=== PATIENT | male | born 1980 | race Caucasian/White ===

== ENCOUNTER 2020-02-21 08:26 | Inpatient (IN) | payer OTHER ==
[2020-02-21 08:59] LABS: #Eosinphils 0.1 thou/uL (0.0-0.7); #Monocytes 1.3 thou/uL (0.11-0.59); #Neutrophils 11.5 thou/uL (1.40-6.50); %Basophils 0.1 % (0.0-1.0); %Eosinophils 0.7 % (0.0-10.0); %Lymphocytes 13.2 % (21.0-51.0); %Monocytes 8.7 % (0.0-10.0); %Neutrophils 77.2 % (42.0-75.0); Hemoglobin 14.6 g/dL (14.0-18.0); Mean Corpuscular HGB CONC 33.8 g/dL (32.0-36.0); Mean Corpuscular Hemoglobin 32.7 pg (27.0-31.0); Mean Corpuscular Volume 96.7 fL (78.0-98.0); Platelet Count 196 thou/uL (130-400); RBC Distribution Width 11.2 % (11.5-14.5); Red Blood Cell (RBC) Count 4.48 mill/uL (4.70-6.10); White Blood Cell (WBC) Count 14.9 thou/uL (4.8-10.8)
[2020-02-21 09:19] LABS: ALT (SGPT) 97 U/L (8-55); AST (SGOT) 49 U/L (5-34); Albumin 4.2 g/dL (3.5-5.0); Alkaline Phosphatase 74 U/L (40-110); Anion Gap 10 mmol/L (10-20); BUN (Urea Nitrogen) 10 mg/dL (8.9-20.6); Bilirubin, Total 1.2 mg/dL (0.2-1.2); Calc. Creatinine Clearance 0 mL/min (70-130); Calcium 8.8 mg/dL (7.8-10.44); Carbon Dioxide 30 mmol/L (22-29); Chloride 107 mmol/L (98-107); Estimated GFR-MDRD Greater than 90; Globulin 2.5 g/dL (2.4-3.5); Glucose 90 mg/dL (70-105); Potassium 3.5 mmol/L (3.5-5.1); Protein, Total 6.7 g/dL (6.0-8.3); Sodium 143 mmol/L (136-145)
[2020-02-21] MEDS ORDERED: Dexamethasone 4 mg/ml Vial ONE (09:21)
[2020-02-21] MEDS ORDERED: Ketorolac Tromethamine 30 MG/ML VIAL ONE (09:22)
[2020-02-21] MEDS ORDERED: cefTRIAXone\\ROCEPHIN 1 GM VIAL ONE (09:22)
[2020-02-21] MEDS ORDERED: Ondansetron PF 4 MG/2 ML Vial ONE (09:22)
--- NOTE | 2020-02-21 10:30 | CT ---
CT neck soft tissues with contrast: 02/21/2020 HISTORY: 39-year-old male with throat pain and dysphagia. Evaluate for abscess. Dr. Clement discussed the findings by telephone with Dr. Bosch at 10:27 AM, 02/21/2020. The mediastinal inv olvement was discussed. FINDINGS: There is a left deep neck fluid collection with very irregular margins and enhancing thick irregular rubi, consistent with abscess. Superior extent is left peritonsillar space with edematous tissue effacing the left side of the oropharyngeal airway. It then extends caudally within the left side of the, including into the left para glottic space, with complete effacement of piriform sinus. A left posterior inferior extension of the abscess fluid collection surrounds the left superior formula of t he thyroid cartilage. Then there is left lateral extension of lateral process of the fluid collection slightly lateral to the left side of the hyoid bone encroaching upon the left submandibula r space. The entire epiglottis, true and false vocal cords, and aryepiglottic folds, are edematous and swollen. The edematous, phlegmonous tissues extend posteriorly across the midline to involve the right parapharyngeal space. Involvement of the hypopharynx includes complete effacement of bilateral piriform sinuses, and involvement of the post cricoid region and posterior pharyngeal wall. There is edematous tissue throughout the upper and mid retropharyngeal space, without organized enhancing rubi (no conclusive evidence of retropharyngeal abscess yet). However, there is edema in t he mediastinum, indicating breakthrough of the retropharyngeal edema through the danger space. The mediastinal edema surrounds the origins of the great vessels and partially surrounds the aortic arch, and reaches the aortopulmonic window. There are bullae at the lung apices. There is some narrowing of the supraglottic laryngeal airway. True and false vocal cords are displaced to the right. There is multilevel left-sided reactive level 2 and level 3 lymph nodes. There is edema surrounding the strap muscles. Edema extends along the left carotid space. IMPRESSION: 1.) Abscess centered in the left side of the larynx, with extension superiorly to the left tonsillar region. 2.) Severe laryngitis with severe edema of the entire larynx and hypopharynx. 3.) The edema extends outside of the laryngeal skeleton and into multiple spaces, including left subm andibular, left carotid, left posterior cervical, retropharyngeal, spaces. 4) most concerning, the edema extends from the retropharyngeal space into the mediastinum. 5) paraseptal emphysema.
[2020-02-21] MEDS ORDERED: Iopamidol 370 76% 100 ML VIAL ONE (10:58)
--- NOTE | 2020-02-21 11:00 | RAD ---
EXAM: Single view of the chest HISTORY: Throat pain and dyspnea COMPARISON: None FINDINGS: Single view of the chest shows a normal sized cardiomediastinal silhouette. There is no deena dence of consolidation, mass, or pleural effusion. The bones are unremarkable IMPRESSION: No evidence of acute cardiopulmonary disease
[2020-02-21] MEDS ORDERED: PROPOFOL 200 MG/20 ML VIAL ONE (11:05)
[2020-02-21] MEDS ORDERED: Rocuronium Bromide 10 MG/ML (10ML VIAL) ONE (11:05)
[2020-02-21] MEDS ORDERED: Clindamycin/D5W 900 mg/50 ml Premix Bag ONE ×2 (11:22→19:34)
[2020-02-21] MEDS ORDERED: Vancomycin 1 GM/200 ML BAG ONE (11:22)
[2020-02-21 12:07] LABS: INR-International Normal Ratio 0.9; PTT 25.1 sec (22.9-36.1)
[2020-02-21 12:32] LABS: CK (CPK) 51 U/L (30-200); Lipase 7 U/L (8-78)
[2020-02-21 12:46] LABS: Bilirubin Negative (Negative); Blood, Urine Negative (Negative); Clarity Clear (Clear); Glucose, Urine (Dipstick) Normal (Negative); Ketone, Urine Negative (Negative); Leukocyte Negative Leu/uL (Negative); Nitrite Negative (Negative); Protein, Urine (Dipstick) Negative (Neg-Trace); Specific Gravity, Urine 1.032 (1.002-1.036); Urobilinogen Normal mg/dL (Less than 2)
[2020-02-21 13:40] LABS: SARS-CoV-2 NAA Rapid Test Not Detected (NotDetected)
--- NOTE | 2020-02-21 13:53 | CON ---
DATE OF CONSULTATION: CHIEF COMPLAINT: Neck swelling, neck soreness, shortness of breath, tonsillitis. HISTORY OF PRESENT ILLNESS: A 39-year-old male patient presenting with several days of sore throat and difficulty swallowing and pain on swallowing and progressively short of breath and coughing up his saliva and mucus, presenting to the emergency room with increasing difficulty of breathing. A CT scan was completed showing a parapharyngeal and paralaryngeal abscess with inflammation that extended down to the mediastinum and given airway concern, ENT was consulted and Medicine was contacted for admission to the intensive care unit. PAST MEDICAL HISTORY: Denies history of diabetes or tonsillar infections or previous abscesses. PAST SURGICAL HISTORY: No head or neck surgeries. CURRENT MEDICATIONS: Keflex. ALLERGIES: TO PENICILLIN. SOCIAL HISTORY: Nonsmoker. FAMILY HISTORY: Noncontributory. REVIEW OF SYSTEMS: SKIN: Negative. EYES: Negative. EARS, NOSE, AND THROAT: See HPI. Otherwise negative. RESPIRATORY: Shortness of breath. CARDIOVASCULAR: Negative. GASTROINTESTINAL: Negative. MUSCULOSKELETAL: Negative. NEUROLOGIC: Negative. HEMATOLOGIC: Negative. LYMPHATIC: Negative. IMMUNOLOGIC: Negative. ENDOCRINE: Negative. PHYSICAL EXAMINATION: GENERAL: The patient is leaning forward with mild distress, but alert and oriented x3. HEAD AND FACE: Normocephalic, atraumatic. No facial skin lesions. No maxillary or frontal gland tenderness. No parotid gland tenderness or submandibular gland tenderness. EYES: Extraocular movements are intact. Pupils are equally round and reactive to light. No nystagmus on lateral gaze. EARS: Right and left pinna are normal. EACs are clear. No evidence of effusion or infection. NOSE: Nasal mucosa is normal and mild septal deviation to the left. ORAL CAVITY: Lips, teeth, and tongue are normal. Floor of mouth is soft. Left base of tongue and left pharynx show significant edema with mild edema on the right as well as viewed through the oropharynx. Nasopharynx, hypopharynx, and larynx were scoped and examined. The nasopharynx is clear. No masses or lesions are noted. The posterior pharynx has minimal edema superiorly, but inferiorly, there is significant edema that is worse on the right side. The base of tongue, vallecula, and epiglottis have significant edema and are deviated. Only one true vocal fold is visible and there is a small opening of the glottis. However, there is significant narrowing from edema and deviation. NECK: Mild lymphadenopathy bilaterally. Trachea is mildly deviated. Thyroid is normal size without apparent nodules. NEUROLOGIC: Cranial nerves 2 through 12 are grossly intact. Mood and affect are normal. IMAGING: CT scan shows significant left-sided paralaryngeal and parapharyngeal abscess that extends inferiorly from the tonsil and soft palate with deviation of the larynx and narrowing of the airway due to edema. ASSESSMENT AND PLAN: A 39-year-old male patient presenting with sore throat, odynophagia, dysphagia, increasing neck pain, and shortness of breath, found to have a paralaryngeal and parapharyngeal abscess, which is deviating airway and causing significant upper airway swelling. Given the patient's previous antibiotic course and presentation, would recommend broad-spectrum empiric antibiotics, which avoid penicillin medicine admission for antibiotics and for mediastinitis and extension into the chest and for antibiotic management. ICU admission for airway observation and likely for incision and drainage of abscess in the OR. PROCEDURE: Flexible laryngoscopy performed with topical lidocaine and phenylephrine was sprayed in bilateral nares. PROCEDURE IN DETAIL: The endoscope was inserted through the right naris into the nasopharynx over the soft palate and the airway was viewed. Please see note for clear description of findings. The patient tolerated the procedure well. Job ID: [id number]
--- NOTE | 2020-02-21 15:38 | CON ---
DATE OF CONSULTATION: HISTORY OF PRESENT ILLNESS: Mr. Cruz is a 39-year-old gentleman, who has been in the ER two times over the weekend with sore throat. He initially received steroids and then antibiotics. He was unable to swallow yesterday evening and unable to sleep. Therefore, he came to the emergency department again. CT scan of his neck was obtained, which shows laryngeal/pharyngeal abscess. Dr. Jordan with ENT has been called, who has performed indirect laryngoscopy under local. There was swollen pharynx and epiglottis. He is planning to take him to the operating room for intubation with direct laryngoscopy and I and D of his neck abscess. I have been asked to see him to standby in case needed. PAST MEDICAL HISTORY: None. PAST SURGICAL HISTORY: None. CURRENT MEDICATIONS: Keflex. ALLERGIES: PENICILLIN. SOCIAL HISTORY: He has never used tobacco and does not use alcohol regularly. REVIEW OF SYSTEMS: He has no history of fever or shortness of breath at home. PHYSICAL EXAMINATION: GENERAL: The patient is currently resting in the preoperative area. He is reclined on the stretcher. He is able to handle his secretions without any difficulty. Left side of his neck is obviously slightly swollen. VITAL SIGNS: His pulse is 90 and regular, blood pressure is 120/70. NECK: I did not vigorously palpate his neck, but his neck is swollen on the left. There is mild erythema. I could not perform an oral exam. CHEST: Clear bilaterally. CARDIAC: Heart rhythm is regular. ABDOMEN: Soft and nontender. EXTREMITIES: No edema. LABORATORY DATA: White blood cell count is 14.9, hemoglobin is 14.6. His creatinine is 0.79 with a potassium of 3.5. PT/INR 0.9. COVID testing is negative. ASSESSMENT AND PLAN: I reviewed the CT scan. The patient is going to the OR for intubation with laryngoscopy and neck exploration, I and D. I am available if needed. Job ID: [id number]
[2020-02-21] MEDS ORDERED: Lidocaine 4% PF 5 ML AMP NEB SCH ×2 (16:00→16:10)
[2020-02-21] MEDS ORDERED: Midazolam HCl 2 mg/2 ml Vial ONE (16:09)
[2020-02-21] MEDS ORDERED: AFRIN NASAL MIST 15 ML BOT ONE (16:09)
[2020-02-21] MEDS ORDERED: Dexmedetomidine 200 MCG/2 ML VIAL ONE (16:09)
[2020-02-21] MEDS ORDERED: Fentanyl 100 MCG/2 ML VIAL ONE (16:09)
[2020-02-21] MEDS ORDERED: Lidocaine 1% PF 5 ML VIAL ONE (16:09)
[2020-02-21] MEDS ORDERED: EPINEPHrine 1 MG/ML AMP ONE ×2 (16:14→17:24)
[2020-02-21] MEDS ORDERED: Lidocaine 1% w/Epinephrine 1:100K 20 ML VIAL ONE (16:14)
[2020-02-21] MEDS ORDERED: Lidocaine 4% Topical Sol 50 ML BOT ONE (16:20)
--- NOTE | 2020-02-21 17:24 | HP ---
PRIMARY CARE PHYSICIAN: The patient currently does not have a primary care physician. CHIEF COMPLAINT: I woke up with a sore throat. HISTORY OF PRESENT ILLNESS: Mr. Cruz is a pleasant 39-year-old gentleman who has no significant past medical history. He was in his usual state of health until Thursday when he says he woke up and noticed some soreness in his throat. He says on Thursday, it got progressively worse. He says he went to a local emergency room where they did a rapid strep screen. It was negative. He says they gave him a dose of steroids and sent him home. However, his symptoms continued to get worse and then on Thursday, he went to the [facility]. There, they gave him some antibiotics and he went home. But then last night, he still could not sleep, and as a result, he came back to the [facility], but this time they transferred him to the ER. A CT scan was done, which showed extensive area of abscess into the submandibular area and into the entire larynx and hypopharynx. As a result, he is being admitted for further evaluation and treatment. ENT has already been consulted from the ER. The patient says he denies having any fever at all. He had been taking some Motrin and Tylenol, but that was just for the pain. He also says that he has difficulty talking and has lost his voice. It basically hurts when he swallows and earlier today, he says he was not able to swallow even liquids. He tried drinking some Gatorade and it would not go down. He denies any recent sick contacts. He has not been exposed to anybody having similar symptoms. He says he has had strep infections when he was younger, but "never anything quite like this before." He has had 4 crowns on his top 4 teeth at the top, but that was about 4 years ago and he has not had any recent dental work and no recent problems with his teeth that he is aware of. No flu-like symptoms. No cough. No congestion. REVIEW OF SYSTEMS: All systems are reviewed and are negative except for that mentioned in the history of present illness. PAST MEDICAL HISTORY: No significant past medical history. PAST SURGICAL HISTORY: He has had LASIK surgery 15 years ago. ALLERGIES: TO PENICILLIN, WHICH CAUSES HIS ARM TO SWELL. SOCIAL HISTORY: He lives alone. He has one child. He is a former smoker. He smoked for about 15 years, about a quarter of a pack a day. He denies any drug use and he does drink. He drinks about 18 pack of beer a week. FAMILY HISTORY: Significant for father who had bone cancer, which he believes started in the lungs. Grandfather on his paternal side had 5 heart attacks and a stroke. Maternal grandfather also had coronary artery disease. CURRENT MEDICATIONS: He has been on steroids as well as an antibiotic, which was cephalexin. PHYSICAL EXAMINATION: GENERAL: He is alert and oriented. He appears to be in no acute distress. He is well developed and well nourished. VITAL SIGNS: Blood pressure was 164/98, heart rate 56, respiratory rate of 18, temperature was 98, and O2 saturation is 98% on room air. HEENT: Pupils are equal, round, and reactive. Extraocular muscles are intact. His sclerae anicteric. Throat, there is no erythema, no exudates. His tympanic membranes on the left, he had quite a bit of wax, but what I could see there was no exudate, no redness of the drum. The right drum was pearly che, clear. There is no erythema. NECK: Essentially no significant . He did have some fullness on the left submandibular area. However, there was no significant fluctuance and no crepitus. No bruits. LUNGS: Clear to auscultation. There is no wheezing, no rales, no rhonchi. CARDIOVASCULAR: He had a normal S1 and S2. There is no S3 or S4. No murmurs, clicks, or rubs. ABDOMEN: Soft, nontender, nondistended. Positive for bowel sounds. No rebound. No guarding. No organomegaly. EXTREMITIES: There is no clubbing or cyanosis. No edema. No calf tenderness. No joint effusions. NEUROLOGIC: The exam is grossly nonfocal. SKIN AND INTEGUMENT: There are no skin changes. No rash. LABORATORY RESULTS: White blood cell count is 14.9, hemoglobin is 14.6, hematocrit is 43.3, and platelet count is 196. INR 0.9. Chemistry; sodium 143, potassium 3.5, chloride is 107, CO2 is 30, BUN of 10, creatinine 0.79, glucose is 90. ASSESSMENT: This is a pleasant 39-year-old gentleman who has been admitted for severe sore throat, looks as if he has a submandibular abscess extending into the mediastinum and could potentially represent like a Tommy angina. He is being admitted to the ICU. He has already been started on broad-spectrum IV antibiotics, which will be continued, likely vancomycin and Unasyn. These infections were cared to cover for polymicrobial source and oral pathogens. ENT has been consulted and the plan is for him to go to surgery. Once he returns, he will be placed on deep venous thrombosis and gastrointestinal prophylaxis and I expect that he will have some dysphagia for a while and may need alternate means of nutrition. Job ID: [id number]
[2020-02-21] MEDS ORDERED: Propofol 1,000 MG/100 ML VIAL IV ONE (18:01)
[2020-02-21] MEDS ORDERED: Morphine 2 MG/ML VIAL SLOW IVP PRN (18:04)
[2020-02-21] MEDS ORDERED: fentaNYL Citrate/PF 2,000 MCG in Sodium Chloride 0.9% 60 ML IV SCH (18:04)
[2020-02-21] MEDS ORDERED: Fentanyl BOLUS 250 ML IVPB PRN (18:04)
[2020-02-21] MEDS ORDERED: Propofol 1,000 MG/100 ML VIAL IV PRN (18:04)
[2020-02-21] MEDS ORDERED: Lorazepam 2 MG/ML VIAL SLOW IVP PRN (18:04)
[2020-02-21] MEDS ORDERED: DISCONTINUE PREVIOUS NARCOTIC PAIN MEDICATIONS AND BENZODIAZEPINES FS SCH (18:04)
[2020-02-21] MEDS ORDERED: Propofol BOLUS 1,000 MG/100 ML VIAL IV PRN (18:04)
[2020-02-21 18:32] LABS: Actual Bicarbonate (HCO3a) 23.7 mEq/L (22-28); Base Excess (BEa) -0.8 mEq/L (-2.0 to +3.0); CO2 Tension 38.8 mmHg (35.0-45.0); Calcium, Ionized (arterial) 1.14 mmol/L (1.12-1.30); Carboxyhemoglobin (COHb) 0.2 gm% (0.0-3.0); Hemoglobin (Hb) 14.2 g/dL (14.0-18.0); O2 Tension (PaO2), arterial 89.1 mmHg (80.0-100.0); Potassium - ABG Lab 3.82 mmol/L (3.70-5.30)
[2020-02-21] MEDS ORDERED: Ampicillin/Sulbactam 1.5 GM in Sodium Chloride 0.9% 100 ML IVPB SCH (18:33)
[2020-02-21] MEDS ORDERED: hydrALAZINE 20 MG/ML VIAL SLOW IVP PRN (18:33)
[2020-02-21] MEDS ORDERED: Ondansetron ODT 4 MG TAB PO PRN (18:33)
[2020-02-21] MEDS ORDERED: Ondansetron PF 4 MG/2 ML Vial IVP PRN (18:33)
[2020-02-21 18:34] LABS: Puncture Site RRA
[2020-02-21] MEDS: Clindamycin/D5W 900 MG in Premix Bag 1 BAG IVPB SCH (19:35)
[2020-02-21] MEDS ORDERED: Vancomycin 1 GM in Premix Bag 1 BAG IVPB SCH ×2 (21:00→23:59)
[2020-02-21] MEDS: Famotidine/PF 20 mg/2ml Vial SLOW IVP SCH ×2 (21:32→21:34)
[2020-02-21] MEDS: Dexamethasone 4 mg/ml Vial SLOW IVP SCH (21:34)
[2020-02-21 22:04] VITALS: BMI 25.3
[2020-02-21] MEDS: Lactated Ringer's 1,000 ML IV SCH (23:17)
[2020-02-22 02:28] VITALS: BP 98/62
[2020-02-22] MEDS: Clindamycin/D5W 900 MG in Premix Bag 1 BAG IVPB SCH ×2 (03:10→13:45)
[2020-02-22 03:28] LABS: #Monocytes 0.8 thou/uL (0.11-0.59); #Neutrophils 10.3 thou/uL (1.40-6.50); %Basophils 0.1 % (0.0-1.0); %Eosinophils 0.2 % (0.0-10.0); %Lymphocytes 8.1 % (21.0-51.0); %Monocytes 6.7 % (0.0-10.0); %Neutrophils 84.9 % (42.0-75.0); Hemoglobin 12.4 g/dL (14.0-18.0); Mean Corpuscular HGB CONC 33.4 g/dL (32.0-36.0); Mean Corpuscular Hemoglobin 31.9 pg (27.0-31.0); Mean Corpuscular Volume 95.5 fL (78.0-98.0); Mean Platelet Volume 8.7 fL (7.4-10.4); Platelet Count 189 thou/uL (130-400); RBC Distribution Width 11.1 % (11.5-14.5); Red Blood Cell (RBC) Count 3.89 mill/uL (4.70-6.10); White Blood Cell (WBC) Count 12.1 thou/uL (4.8-10.8)
[2020-02-22 03:49] LABS: Anion Gap 15 mmol/L (10-20); BUN (Urea Nitrogen) 12 mg/dL (8.9-20.6); Calc. Creatinine Clearance 152 mL/min (70-130); Calcium 8.5 mg/dL (7.8-10.44); Carbon Dioxide 24 mmol/L (22-29); Chloride 106 mmol/L (98-107); Estimated GFR-MDRD Greater than 90; Glucose 134 mg/dL (70-105); Potassium 3.9 mmol/L (3.5-5.1); Sodium 141 mmol/L (136-145)
[2020-02-22] MEDS: Dexamethasone 4 mg/ml Vial SLOW IVP SCH ×3 (05:25→21:42)
--- NOTE | 2020-02-22 07:37 | PDOC.HOSPP ---
- Subjective Encounter Date: 02/22/20 Encounter Time: 09:37 Subjective: Mr. Cruz was seen today in follow-up of Larygeal abscess. He has had drainage of the abscess. He feels much better, and his voice is much improved. He does not have any new complaints. - Objective Vital Signs & Weight: Vital Signs (12 hours) Temp Pulse Resp BP Pulse Ox 02/22/20 06:00 16 02/22/20 04:00 16 02/22/20 03:00 98.3 F 02/22/20 02:26 40 L 98/62 02/22/20 02:00 16 02/22/20 00:00 98.1 F 16 02/21/20 22:21 58 L 111/68 02/21/20 22:00 16 02/21/20 21:00 97.9 F 96 02/21/20 20:49 97.9 F 49 L 18 96 Weight Weight 171 lb 11.841 oz Most Recent Monitor Data Heart Rate from ECG 38 NIBP 110/72 NIBP BP-Mean 84 Respiration from ECG 16 SpO2 94 I&O: 02/21/20 02/22/20 02/23/20 06:59 06:59 06:59 Intake Total 1429 Output Total 755 Balance 674 Result Diagrams: 02/22/20 03:11 02/22/20 03:11 Hospitalist ROS - Medication Medications: Active Medications Generic Name Dose Route Start Last Admin Trade Name Freq PRN Reason Stop Dose Admin Dexamethasone 8 mg 02/21/20 22:00 02/22/20 05:25 Decadron SLOW IVP 02/22/20 22:01 8 mg Q8HR NO Administration Famotidine 20 mg 02/21/20 21:00 02/21/20 21:32 Pepcid SLOW IVP 20 mg BID NO Administration Famotidine 20 mg 02/21/20 21:00 02/21/20 21:34 Pepcid SLOW IVP Not Given Q12HR NO Lactated Ringer's 1,000 mls @ 125 mls/hr 02/21/20 18:30 02/21/20 23:17 Lactated Ringer's IV 1,000 mls INF NO Administration Vancomycin HCl 1 gm/ Device 200 mls @ 200 mls/hr 02/21/20 23:59 02/21/20 23: 59 IVPB 200 mls 1200,2359 NO Administration Clindamycin Phosphate/Dextrose 50 mls @ 100 mls/hr 02/21/20 19:00 02/22/20 03 :10 900 mg/ Device IVPB 50 mls 0300,1100,1900 NO Administration Propofol 1,000 mg 02/21/20 18:04 02/22/20 01:44 Diprivan IV 03/22/20 18:04 1,000 mg INF PRN Administration TO ACHIEVE GOAL RASS Protocol - Exam Eye: PERRL, anicteric sclera Heart: RRR, no murmur, no gallops, no rubs, normal peripheral pulses Respiratory: CTAB, no wheezes, no rales, no ronchi, normal chest expansion Gastrointestinal: soft, non-tender, non-distended, normal bowel sounds Extremities: no cyanosis, no edema Hosp A/P (1) Abscess of larynx Code(s): J38.7 - OTHER DISEASES OF LARYNX Status: Acute (2) Tobacco abuse Code(s): Z72.0 - TOBACCO USE Status: Chronic - Plan * Larygeal Abscess- continue current antibiotics- Levaquin, Clindamycin, and Vancomycin * 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
[2020-02-22] MEDS: Lactated Ringer's 1,000 ML IV SCH (08:06)
[2020-02-22] MEDS: Famotidine/PF 20 mg/2ml Vial SLOW IVP SCH ×3 (08:10→20:12)
[2020-02-22] MEDS: Enoxaparin Sodium 40 MG/0.4 ML SYRINGE SC SCH (09:16)
[2020-02-22 09:33] LABS: Magnesium 1.8 mg/dL (1.6-2.6)
[2020-02-22 11:38] LABS: Vancomycin, Trough 5.6 ug/mL
--- NOTE | 2020-02-22 12:02 | EKG ---
Test Reason : Blood Pressure : / mmHG Vent. Rate : 051 BPM Atrial Rate : 051 BPM P-R Int : 152 ms QRS Dur : 108 ms QT Int : 458 ms P-R-T Axes : 064 038 019 degrees QTc Int : 422 ms Sinus bradycardia with sinus arrhythmia Non-specific intra-ventricular conduction delay Abnormal ECG Confirmed by CHINA GALO ([id number]) on 02/22/2020 12:01:45 PM Referred By: VIVEK *R Confirmed By:CHINA GALO
[2020-02-22] MEDS: Vancomycin 1 GM in Premix Bag 1 BAG IVPB SCH ×2 (13:45→20:12)
[2020-02-22] MEDS ORDERED: MEROPENEM 1 GM/50 ML 1 GM in Premix Bag 1 BAG IVPB SCH (14:00)
[2020-02-22] MEDS ORDERED: Meropenem 1 GM in Sodium Chloride 0.9% 100 ML IVPB SCH (14:00)
--- NOTE | 2020-02-22 15:08 | CON ---
DATE OF CONSULTATION: 02/22/2020 REASON FOR CONSULTATION: Parapharyngeal space infection with extension to the laryngeal space and the mediastinum, status post I and D. HISTORY OF PRESENT ILLNESS: A 39-year-old who has history of allergies, rhinitis, sinusitis, and previous episodes of sore throat, so who developed a more severe one, went to see his physician and prescribed Keflex without improvement and then he developed progression of inflammatory process with involvement of the larynx and he had worsening of the pharyngeal pain, swallowing pain. He lost his voice. A CT of the neck showed extensive inflammatory process involving the parapharyngeal, retropharyngeal, the laryngeal space, particularly on the left side, and the tonsillar area, and hypopharynx. The inflammatory process extended into the left submandibular, carotid, posterior cervical and extended into the retropharyngeal space into the mediastinum. There was evidence of paraseptal emphysema, so the patient has been admitted, started on broad-spectrum antimicrobial coverage and he had a surgical procedure of drainage. He has now been extubated. He is sitting up in bed. He is feeling much improved. He is able to swallow with little minimal pain. He denies headaches. No visual symptoms. No sore throat. No chest pain. No abdominal pain or diarrhea. No genitourinary symptoms. No joint symptoms. No neurological symptoms. MEDICAL HISTORY: 1. Sinusitis. 2. Rhinitis. 3. Episodes of sore throat in the past. SURGICAL HISTORY: LASIK surgery. ALLERGIES: PENICILLIN. THIS IS A REPORTED ALLERGY WHEN HE WAS A CHILD. HE DOES NOT REMEMBER IT WELL, BUT BASICALLY THE AREA WHERE THE INJECTION WAS GIVEN, SWELLED UP AND THAT WAS BASICALLY IT. 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 Former smoker. CURRENT MEDICATIONS: 1. Levaquin. 2. Clindamycin. 3. Vancomycin. 4. P.r.n. medications. 5. Enoxaparin. FAMILY HISTORY: Noncontributory. PHYSICAL EXAMINATION: VITAL SIGNS: Temperature is normal. Other vital signs are normal. HEENT: The inspection of the oral cavity is not remarkable. He has an area of what appears to be a linear cut in the posterior oropharynx left side. It is much less tenderness on the left side and less swelling. No trismus. His voice is normal. There is no stridor. LUNGS: Clear to auscultation and percussion. NECK: Supple. The thyroid cartilage is in midline. HEART: S1 and S2. Regular rate. No S3 or S4. ABDOMEN: Soft, not distended or tender. No ascites. No bladder distention. EXTREMITIES: No joint inflammatory activity. No edema. Moves extremities equally. NEUROLOGIC: Cognitive function is perfectly fine. LABORATORY DATA: White cell count 14.9 and now 12.1, hemoglobin 12.4, and platelets 189 with 84% neutrophils. INR 0.9. A pH of 7.4, pCO2 of 38, and pO2 of 89. Sodium 141, creatinine 0.71, AST 49, ALT 97, alkaline phosphatase 74, albumin 4.2, and globulin 2.5. Urinalysis was normal. Vancomycin trough 5.6. SARS-CoV-2 PCR negative. The cultures we have are the pharyngeal sample with polymicrobial abhay, yet to be identified, susceptibility tested. Two sets of blood cultures, thus far no growth. Group A strep negative. IMAGING STUDIES: Discussed above. Chest x-ray with no infiltrates. ASSESSMENT: Parapharyngeal space and paralaryngeal space infection with extension to the mediastinum, now status post I and D with marked improvement. DISCUSSION: Those processes usually start in the parapharyngeal space and extend into the inferior structures and may go all the way to the mediastinum. They made of all the vascular bundle and cause septic thrombophlebitis sometimes, it is not apparent in this case. Typical organisms include the microaerophilic abhay of the oral cavity including gram-negative anaerobes, Staphylococcus aureus sometimes with less likely, gram-negative enterics unlikely. The reported history of allergy to penicillin is in childhood and it is most likely a local reaction, not a systemic allergic reaction. Studies have been demonstrated that on rechallenge those patients uniformly do well, so I am going to go ahead and switch him to meropenem, which has better anaerobic coverage for the microbiology retrieved in those processes. He probably does not need vancomycin, but we will await until final results of cultures. In view of the extensive involvement and extension into the mediastinum, I would continue with IV therapy for at least another 2 weeks approximately. Job ID: [id number]
--- NOTE | 2020-02-22 15:56 | CON ---
DATE OF CONSULTATION: 02/22/2020 HISTORY OF PRESENT ILLNESS: Kenneth Cruz is a 39-year-old gentleman, who has been in and out of several ERs for several days with progressive dysphagia, swelling, pain without any fever. He eventually went to the [facility] several times, where he was given antibiotics and steroids. Yesterday, his pain and swelling became worse associated with some difficulty breathing for the first time. His CT of neck was ordered, which showed evidence of rather multiple pharyngeal, laryngeal abscesses. He underwent surgical intervention by ENT. He was left intubated with a #6 endotracheal tube. PAST MEDICAL HISTORY: Pertinent for previous history of bradycardia. Apparently, no history of diabetes or hypertension. PAST SURGICAL HISTORY: None. CHRONIC MEDICATION: None. ALLERGIES: PENICILLIN. SOCIAL HISTORY: Otherwise, unremarkable. He drinks 18 beers over the course of a week. Former smoker, quit 2 years ago. He was given prednisone and Keflex and urgently in the ER. REVIEW OF SYSTEMS: Otherwise, negative. PHYSICAL EXAMINATION: GENERAL: On the vent, he is awake, alert, responsive. VITAL SIGNS: Pulse is between 45 to 50s, blood pressure 130/80, saturations 90s, respirations 18. CHEST: No wheezing. No crackles. CARDIAC: Normal S1, S2. No gallops. ABDOMEN: No masses. LABORATORY DATA: PO2 is 89, pCO2 is 38%, pH 7.40. White count 12,000, H and H of 12 and 37, platelet count 189. IMPRESSION: 1. Status post respiratory failure secondary to laryngeal, pharyngeal abscesses, multiple. Status post I and D. 2. History of previous tobacco. 3. History of alcohol abuse. PLAN: He is bradycardiac on EKG. Appropriate lab along with echocardiogram is ordered. Continue broad-spectrum antibiotics. He probably needs repeat CT of his chest, make sure he does not have significant mediastinitis. He may require prolonged antibiotics if this is the case. In the meantime, I would continue clindamycin and vancomycin. CRITICAL CARE TIME: This is a 45-minute critical care time. Job ID: [id number]
[2020-02-22] MEDS: MEROPENEM 1 GM/50 ML 1 GM in Premix Bag 1 BAG IVPB SCH ×2 (17:05→21:43)
--- NOTE | 2020-02-22 18:23 | CON ---
DATE OF CONSULTATION: REASON FOR CONSULTATION: Sinus bradycardia. HISTORY OF PRESENT ILLNESS: Mr. Cruz is a 39-year-old gentleman. He says for several years, he is known that his heart rate is relatively slow. He has been totally asymptomatic. So he went for the [employer] physical examination, at what time they told his heart rate was slow, but he is totally asymptomatic. No chest pain, pressure, heaviness, or wheezing. No lightheadedness. No dizziness. The patient is admitted on this occasion with an abscess of the pharynx with extension into the laryngeal space and mediastinum. PAST MEDICAL HISTORY: History of bradycardia, asymptomatic. PAST SURGICAL HISTORY: LASIK surgery. ALLERGIES: TO PENICILLIN A CHILD. SOCIAL HISTORY: Works in the railroad. Former smoker. MEDICATIONS: No cardiac medications. FAMILY HISTORY: Noncontributory. PHYSICAL EXAMINATION: GENERAL: This is a pleasant gentleman, in no distress, resting comfortably. VITAL SIGNS: Blood pressure 113/75 and pulse is in the 50s, when he moves around in the bed and talks, it goes up in the 70s. LUNGS: Clear. CARDIAC: Normal S1 and normal S2. ABDOMEN: Soft and nontender. EXTREMITIES: Warm and dry. No clubbing or cyanosis. There is no edema. Peripheral pulses are normal dorsalis pedis and posterior tibial. LABORATORY DATA: EKG sinus bradycardia, otherwise normal. ASSESSMENT: Sinus bradycardia, asymptomatic, likely longstanding. PLAN: Echocardiogram is being done. Otherwise, no other intervention or therapy would be indicated. Can be released home at any time from a cardiac standpoint. Once he recovers from the laryngeal abscess, consideration for outpatient treadmill testing could be done to see if his heart rate comes up appropriately with exertion, which likely it does. Nothing else to be done at the present time. ADDENDUM: Mr. Cruz's echocardiogram is normal. He appears to have normal heart rate variability. No other evaluation or therapy is indicated from a cardiac standpoint at this time. We will sign off. Please re-consult if needed. Job ID: [id number]
--- NOTE | 2020-02-23 01:57 | OP ---
DATE OF PROCEDURE: 02/21/2020 PREOPERATIVE DIAGNOSES: Paralaryngeal and parapharyngeal deep neck space abscess with odynophagia, dysphagia, and fever and chills. POSTOPERATIVE DIAGNOSES: Paralaryngeal and parapharyngeal deep neck space abscess with odynophagia, dysphagia, and fever and chills. PROCEDURES PERFORMED: Direct laryngoscopy with tracheoscopy with operative telescope incision and drainage of intraoral parapharyngeal and paralaryngeal deep neck abscess. PERMIT: Procedures, benefits, risks including those of bleeding, infection, injury, anesthesia, allergic reaction, damage to airway and alternatives were reviewed with the patient, who expressed understanding of the information. The consent form was signed and witnessed and a paper copy of the consent form is available for review in the paper chart. INDICATIONS: This is a 39-year-old male patient presenting to the emergency room with increasing shortness of breath, difficulty swallowing and fever despite taking Keflex as prescribed by his primary care physician. CT scan showed parapharyngeal and paralaryngeal deep neck space abscess that extended in two part of the retropharynx and given fluid location and complex loculation, recommendation was for operative treatment as well as for admission to the ICU with antibiotic therapy. ASSISTANTS: None. FINDINGS: Edematous upper airway with purulence and also left parapharyngeal and paralaryngeal neck abscess. DESCRIPTION OF OPERATION: The patient was brought to the operating room and laid supine on the operating room table. Care was taken to only get Precedex anesthesia and to avoid total anesthesia. The patient was then intubated carefully with a GlideScope with a six 6-0 wire reinforced endotracheal tube. After this was completed and the endotracheal tube was secured, the patient was rotated 90 degrees to the patient's right and the operative equipment was brought into place and the patient was prepped and draped in the usual fashion. The Juan Alberto laryngoscope was used to examine the oropharynx, base of tongue, epiglottis, and the larynx and the pharynx. There was significant edema seen and bulging of the left pharyngeal wall, which extended down to the left arytenoid. The laryngoscope was then suspended and an operative telescope was brought into place and examined the entire area. At this point, an incision was made where a small amount of purulence was seen with pressure on the external neck and the incision was carried roughly 2 cm down towards the arytenoid from the superior to inferior fashion. As the incision was made, significant purulence was expressed and a culture of such purulence was taken and sent off for aerobic and anaerobic cultures. At this point, the Cardiolite was then suctioned with laryngeal suction and after laryngeal spatula was used to probe the wound very carefully taking care not to extend into the lateral neck to avoid damage to the carotid artery. The loculations were probed and then again the suction was placed in the pocket and any remaining purulent fluid was removed and blunt instruments were used to continually probe the pocket. At this point, there was no purulence found and the laryngeal instruments were removed. The larynx and pharynx were again evaluated and given the edema, the laryngoscope was removed and the patient's endotracheal tube was left in place and the patient was turned back to anesthesia for emergence and transferred to the PACU where the patient stayed on respiratory support overnight with a plan to extubate the following day. There were no complications and the patient tolerated the procedure well. Job ID: [id number] [facility]ITALWhitley
[2020-02-23] MEDS: Vancomycin 1 GM in Premix Bag 1 BAG IVPB SCH (03:16)
[2020-02-23 03:42] LABS: Anion Gap 12 mmol/L (10-20); BUN (Urea Nitrogen) 13 mg/dL (8.9-20.6); Calc. Creatinine Clearance 152 mL/min (70-130); Calcium 8.4 mg/dL (7.8-10.44); Carbon Dioxide 25 mmol/L (22-29); Chloride 108 mmol/L (98-107); Estimated GFR-MDRD Greater than 90; Glucose 128 mg/dL (70-105); Potassium 3.8 mmol/L (3.5-5.1); Sodium 141 mmol/L (136-145)
[2020-02-23 03:53] LABS: Band 9 % (5-11); Hemoglobin 12.9 g/dL (14.0-18.0); Lymphocytes 10 % (21-51); MDiff Complete? YES; Mean Corpuscular HGB CONC 35.6 g/dL (32.0-36.0); Mean Corpuscular Volume 95.7 fL (78.0-98.0); Mean Platelet Volume 8.3 fL (7.4-10.4); Monocytes 8 % (0-10); Neutrophil 73 % (42-75); Platelet Count 206 thou/uL (130-400); White Blood Cell (WBC) Count 14.3 thou/uL (4.8-10.8)
[2020-02-23] MEDS: MEROPENEM 1 GM/50 ML 1 GM in Premix Bag 1 BAG IVPB SCH ×2 (05:22→14:58)
[2020-02-23] MEDS: Famotidine/PF 20 mg/2ml Vial SLOW IVP SCH (08:43)
[2020-02-23] MEDS: Enoxaparin Sodium 40 MG/0.4 ML SYRINGE SC SCH (08:43)
--- NOTE | 2020-02-23 09:30 | PDOC.HOSPP ---
- Subjective Encounter Date: 02/23/20 Encounter Time: 09:29 Subjective: Mr. Campoverde was seen today in follow-up of parapharyngeal abscess. He does not have any complaints. He wants to go home SHARA. - Objective Vital Signs & Weight: Vital Signs (12 hours) Temp Pulse Ox 02/23/20 08:00 98 02/23/20 07:18 98.2 F 02/23/20 04:00 98.2 F 02/23/20 00:32 98.6 F Weight Weight 171 lb 11.841 oz Most Recent Monitor Data Heart Rate from ECG 41 NIBP 134/74 NIBP BP-Mean 94 Respiration from ECG 13 SpO2 98 I&O: 02/22/20 02/23/20 02/24/20 06:59 06:59 06:59 Intake Total 1429 1735 Output Total 755 450 Balance 674 1285 Result Diagrams: 02/23/20 02:51 02/23/20 02:51 Hospitalist ROS - Medication Medications: Active Medications Generic Name Dose Route Start Last Admin Trade Name Freq PRN Reason Stop Dose Admin Enoxaparin Sodium 40 mg 02/22/20 09:00 02/23/20 08:43 Lovenox SC 40 mg 0900 NO Administration Famotidine 20 mg 02/21/20 21:00 02/23/20 08:43 Pepcid SLOW IVP 20 mg BID NO Administration Lactated Ringer's 1,000 mls @ 125 mls/hr 02/21/20 18:30 02/22/20 08:06 Lactated Ringer's IV 1,000 mls INF NO Administration Vancomycin HCl 1 gm/ Device 200 mls @ 200 mls/hr 02/22/20 12:00 02/23/20 03: 16 IVPB 200 mls 0400,1200,2000 NO Administration Meropenem 1 gm/ Device 50 mls @ 100 mls/hr 02/22/20 14:00 02/23/20 05:22 IVPB 50 mls Q8HR NO Administration Propofol 1,000 mg 02/21/20 18:04 02/22/20 01:44 Diprivan IV 03/22/20 18:04 1,000 mg INF PRN Administration TO ACHIEVE GOAL RASS Protocol Sodium Chloride 10 ml 02/22/20 21:00 02/23/20 08:43 Flush - Normal Saline IVF 10 ml Q12HR NO Administration - Exam Eye: PERRL, anicteric sclera Heart: RRR, no murmur, no gallops, no rubs, normal peripheral pulses Respiratory: CTAB, no wheezes, no rales, no ronchi, normal chest expansion Extremities: no cyanosis, no edema Hosp A/P (1) Abscess of larynx Code(s): J38.7 - OTHER DISEASES OF LARYNX Status: Acute (2) Tobacco abuse Code(s): Z72.0 - TOBACCO USE Status: Chronic - Plan * Larygeal Abscess- Continue Meropenem- ID recommendations noted. @ weeks of IV antibiotics have been recommended * Will place a PICC line, and consult CM for Outpatient IV antibiotics * Bardycardia- Cardiology Evaluation notes.
[2020-02-23 11:27] LABS: Vancomycin, Trough 12.3 ug/mL
[2020-02-23] MEDS ORDERED: Vancomycin HCl 1.25 GM in Sodium Chloride 0.9% 250 ML 250 ML IVPB SCH (12:00)
--- NOTE | 2020-02-23 15:01 | PRG ---
DATE OF SERVICE: 02/23/2020 SUBJECTIVE: Feeling better pretty much back to baseline. Little pain on swallowing. No respiratory symptoms or abdominal pain. OBJECTIVE: VITAL SIGNS: He is afebrile. Although, his vital signs are normal. HEENT: Oral cavity inspection with little area of incision in the posterior oropharynx, left side. NECK: Supple. Minor tenderness, left side. LUNGS: Clear to auscultation and percussion. HEART: S1 and S2, regular rate. ABDOMEN: Soft, not distended or tender. EXTREMITIES: No joint inflammatory activity. LABORATORY DATA: White cell count 14.3, hemoglobin 12.9, platelets 206, 73% neutrophils. Chemistries is normal. Mild elevation of glycemia. Microbiology group C strep, but there are other pathogens in view of the Gram stain which showed likely anaerobic gram-negative rods such as fusobacterium. ASSESSMENT AND DISCUSSION: Parapharyngeal space, paralaryngeal space infection with abscess formation extension into the mediastinum, status post drainage. Now, the patient will get a PICC line and will be discharged on IV Merrem or ertapenem for about 2 weeks approximately. Job ID: [id number]
--- NOTE | 2020-02-23 15:30 | SPC ---
Left upper extremity PICC placement sonographic guided HISTORY: Throat infection. FINDINGS: After explaining the procedure and answering all questions, the left upper extremity was pr epped and draped in usual sterile fashion. Sterile technique, buffered local anesthesia, sonographic guidance, and a 22-gauge needle were used t o carefully access the left basilic vein. Standard technique was used to place the tip of a 5 [place] single lumen PICC so that the tip lies at the level of the cavoatrial junction. Catheter was flushed and secured externally. Patient tolerated the procedure well and was returned in unchanged condition. Fluoroscopy time 0 seconds. IMPRESSION : Left upper extremity PICC is ready for use.
[2020-02-23 16:40] VITALS: TEMP 98.2
--- NOTE | 2020-02-23 21:17 | PRG ---
DATE OF SERVICE: 02/23/2020 SUBJECTIVE: Mr. Cruz was seen this morning. He is tentatively on the schedule for PICC line. After this, he was tentatively to go home for outpatient antibiotics. OBJECTIVE: VITAL SIGNS: Stable. LUNGS: Clear. HEART: Regular rate and rhythm. ABDOMEN: Soft. EXTREMITIES: Without edema. IMPRESSION: Pharyngeal abscess with extension into his upper mediastinum, on long-term antibiotic therapy. He is stable. We will sign off. Job ID: [id number]
--- NOTE | 2020-02-23 23:36 | DIS ---
DATE OF ADMISSION: 02/21/2020 DATE OF DISCHARGE: 02/23/2020 DISCHARGE DISPOSITION: Home. DISCHARGE DIAGNOSES: 1. Paralaryngeal abscess. 2. Asymptomatic bradycardia. 3. Tobacco abuse. DISCHARGE MEDICATIONS: Include Invanz for 2 weeks and this will be given through Dr. Thompson's office. CODE STATUS: Full code. ALLERGIES: PENICILLIN. IMAGING DONE DURING HOSPITAL STAY: The patient had a CT scan of the neck and soft tissue, which the predominant findings were a deep neck fluid collection with irregular margins, consistent with an abscess and the fluid collection was to the left of the hyoid bone crouching on the left submandibular space. There was epiglottitis and some of the edema went into the retropharyngeal space. The patient had an echocardiogram, in which the ejection fraction was estimated at 60% to 65%. There was normal valvular structure. The patient also had an I and D of the parapharyngeal abscess. HOSPITAL COURSE: Mr. Cruz is a pleasant 39-year-old gentleman, who presented to the emergency room with complaints of a sore throat and odynophagia, which got progressively worse, failed outpatient treatment. When he arrived at the emergency room here, he was found to have a fairly extensive parapharyngeal abscess. ENT was consulted and he was admitted and underwent urgent drainage of the abscess. He was monitored in the ICU overnight due to the extensive nature and location of the infection. He was seen also by ID and it was felt that this was likely a polymicrobial infection and as such, he was placed on IV meropenem initially. He also was noted to have bradycardia, which was asymptomatic, which has been a long-term occurrence for the patient. As a precaution, he was seen by Cardiology and an echocardiogram was done. There was no evidence of any structural abnormalities in the heart and it was felt that he would not need any further workup for this. The following day after his surgery, he was tolerating a solid diet. No evidence of any stridor or difficulty breathing and as such, he was able to be discharged home after IV antibiotics were arranged for him to receive for a total of two weeks. Job ID: [id number]
--- NOTE | 2020-02-24 10:19 | PDOC.HHP ---
Hospitalist HPI - History of Present Illness I have soreness in the throat. History of Present Illness: Mr. Cruz is a 39 year old male with no past medical history who presents to the ED with a chief complaint of soreness in the throat for 4 days. He woke up on Friday 02/16 with soreness of the throat. It progressively got worse on Thursday, so he went to the local emergency room. Rapid strep screen was negative, and he was given a dose of steroids and sent home. Hospitalist Results - Labs Result Diagrams: 02/23/20 02:51 02/23/20 02:51 Lab results: WBC 14.3 thou/uL (4.8-10.8) H 02/23/20 02:51 Hgb 12.9 g/dL (14.0-18.0) L 02/23/20 02:51 Hct 36.4 % (42.0-52.0) L 02/23/20 02:51 MCV 95.7 fL (78.0-98.0) 02/23/20 02:51 Plt Count 206 thou/uL (130-400) 02/23/20 02:51 Neutrophils % 84.9 % (42.0-75.0) H 02/22/20 03:11 Band Neuts % (Manual) 9 % (5-11) 02/23/20 02:51 ABG pH 7.40 (7.35-7.45) 02/21/20 18:25 ABG pCO2 38.8 mmHg (35.0-45.0) 02/21/20 18:25 ABG pO2 89.1 mmHg (80.0-100.0) 02/21/20 18:25 Sodium 141 mmol/L (136-145) 02/23/20 02:51 Potassium 3.8 mmol/L (3.5-5.1) 02/23/20 02:51 Chloride 108 mmol/L (98-107) H 02/23/20 02:51 Carbon Dioxide 25 mmol/L (22-29) 02/23/20 02:51 BUN 13 mg/dL (8.9-20.6) 02/23/20 02:51 Creatinine 0.71 mg/dL (0.7-1.3) 02/23/20 02:51 Glucose 128 mg/dL (70-105) H 02/23/20 02:51 Lactic Acid 1.1 mmol/L (0.5-2.2) 02/21/20 11:39 Calcium 8.4 mg/dL (7.8-10.44) 02/23/20 02:51 Total Bilirubin 1.2 mg/dL (0.2-1.2) 02/21/20 08:49 AST 49 U/L (5-34) H 02/21/20 08:49 ALT 97 U/L (8-55) H 02/21/20 08:49 Alkaline Phosphatase 74 U/L (40-110) 02/21/20 08:49 Creatine Kinase 51 U/L (30-200) 02/21/20 11:30 Troponin I Less than 0.010 ng/mL (< 0.028) 02/21/20 11:39 Serum Total Protein 6.7 g/dL (6.0-8.3) 02/21/20 08:49 Albumin 4.2 g/dL (3.5-5.0) 02/21/20 08:49 Lipase 7 U/L (8-78) L 02/21/20 11:30 Urine Ketones Negative mg/dL (Negative) 02/21/20 12:30 Urine Blood Negative (Negative) 02/21/20 12:30 Urine Nitrite Negative (Negative) 02/21/20 12:30 Ur Leukocyte Esterase Negative Michelle/uL (Negative) 02/21/20 12:30
== END 2020-02-23 18:00 | disposition home or self-care (01) | DRG 133 ==
LOC: ERS 08:26 → ERHOLD 11:03 → CCU 21:06 → IMCU/EMU 02-22 12:09
PROVIDERS: ADMIT Internal Medicine; ATTEND Internal Medicine
PROC: 0C9M0ZZ Drainage of Pharynx, Open Approach (ICD-10-PCS; principal; 2020-02-21)
PROC: 0C9 Mouth and Throat, Drainage (ICD-10-PCS; 2020-02-21)
PROC: 0CJS8ZZ Inspection of Larynx, Via Natural or Artificial Opening Endoscopic (ICD-10-PCS; 2020-02-21)
PROC: 02HV33Z Insertion of Infusion Device into Superior Vena Cava, Percutaneous Approach (ICD-10-PCS; 2020-02-23)
PROC: B518YZA Fluoroscopy of Superior Vena Cava using Other Contrast, Guidance (ICD-10-PCS; 2020-02-23)
PROC: B548ZZA Ultrasonography of Superior Vena Cava, Guidance (ICD-10-PCS; 2020-02-23)
DX: J38.7 Other diseases of larynx (principal); J85.3 Abscess of mediastinum; J39.1 Other abscess of pharynx; L02.11 Cutaneous abscess of neck; J05.10 Acute epiglottitis without obstruction; J32.9 Chronic sinusitis, unspecified; R00.1 Bradycardia, unspecified; Z88.0 Allergy status to penicillin; Z87.891 Personal history of nicotine dependence; Z11.59 Encounter for screening for other viral diseases
CPT/HCPCS: 36415; 36569; 70491; 71045; 80048; 80053; 80202; 81003; 82550; 82805; 83605; 83690; 83735; 84100; 84443; 84484; 85025; 85610; 85730; 87040; 87070; 87077; 87081; 87205; 87430; 93005; 93010; 93306; 94002; 94003; 96361; 96365; 96366; 96367; 96368; 96375; C1751; J0171; J0696; J1100; J1650; J1885; J1956; J2185; J2250; J2405; J2704; J3010; J3370; J3490; J7050; Q9967; S0028; U0002